=== PATIENT | male | born 1940 | race Caucasian/White ===

== ENCOUNTER 2020-03-26 08:59 | Inpatient (IN) ==
[2020-03-26] MEDS ORDERED: ACETAMINOPHEN 325 MG TABLET PO PRN (11:19)
[2020-03-26] MEDS ORDERED: MAGNESIUM HYDROXIDE SUSP 30 ML UDCUP PO PRN (11:19)
[2020-03-26] MEDS ORDERED: MORPHINE 4 MG/1 ML VIAL IV PRN ×2 (11:19)
[2020-03-26] MEDS ORDERED: ONDANSETRON 4 MG/2 ML VIAL IV PRN (11:19)
[2020-03-26] MEDS ORDERED: ZALEPLON 5 MG CAPSULE PO PRN (11:19)
[2020-03-26] MEDS ORDERED: VANCOMYCIN INJ 1,000 MG in SODIUM CHLORIDE 0.9% 250 ML IV SCH (11:30)
[2020-03-26 12:09] LABS: Basophils % 0.3 % (0.0-0.8); Eosinophils # 0.1 10*3/uL (0.0-0.87); Eosinophils % 0.9 % (0.00-10.9); Hematocrit 36.2 VOL% (42.0-52.0); Hemoglobin 11.8 GM/DL (14.0-18.0); Immature Granulocytes % 0.7 %; Immature Granulocytes Absolute 0.08 #; Lymphocytes # 1.2 10*3/uL (1.4-4.0); Lymphocytes % 10.3 % (21.2-54.2); Mean Corpuscular HGB Conc 32.6 GM/DL (32-36); Mean Corpuscular Volume 94.8 FL (87-102); Mean Platelet Volume 11.8 FL (9.6-12.0); Monocytes % 8.7 % (1.7-12.7); Neutrophils % 79.1 % (38.7-73.9); Platelet Count 237 T/CUMM (130-400); Red Blood Count 3.82 MC/CUMM (3.8-5.5); Red Cell Distribution Width 13.2 % (9.3-17.3); White Blood Count 11.5 T/CUMM (4-12)
[2020-03-26 12:35] LABS: Albumin 3.2 G/DL (3.4-5.0); Bilirubin,Total 1.3 MG/DL (0.2-1.0); Calcium 9.4 MG/DL (8.5-10.1); Osmolality,Calculated 276.1 MOS/KG (273-304); Total Protein 8.6 G/DL (6.4-8.3)
[2020-03-26 12:56] LABS: INR 1.1; PT Patient Result 11.4 SECS (9.8-11.9); Partial Thromboplastin Time 32.5 SECS (23.9-33.8)
[2020-03-26] MEDS: LACTATED RINGERS 1,000 ML IV SCH ×2 (13:40→23:56)
[2020-03-26] MEDS: VANCOMYCIN INJ 1,500 MG in SODIUM CHLORIDE 0.9% 500 ML IV SCH (13:41)
[2020-03-26 15:44] LABS: Apearance,Urine CLEAR (Clear); Bilirubin,Urine Negative (Negative); Blood, Urine Negative (Negative); Glucose,Urine (UA) Negative (Negative); Hyaline Casts,Urine 1 /LPF (0-3); Ketones,Urine Negative (Negative); Mucus,Urine Occasional /LPF (Occasional); Nitrite,Urine Negative (Negative); Protein,Urine Negative; RBC,Urine <1 /HPF (0-4); Squamous Epithelial Cell,Urine Occasional /HPF (0-10); Urine Color Straw (Yellow); Urine Specific Gravity 1.011 (1.001-1.035); Urine Urobilinogen < 2.0 EU/DL (0.2-1.0)
[2020-03-26] MEDS: SIMVASTATIN 10 MG TABLET PO SCH (21:06)
[2020-03-26] MEDS: DOCUSATE SODIUM 100 MG CAPSULE PO SCH (21:06)
[2020-03-27 06:57] LABS: Basophils # 0.1 10*3/uL (0.0-0.2); Basophils % 0.6 % (0.0-0.8); Eosinophils # 0.2 10*3/uL (0.0-0.87); Eosinophils % 2.7 % (0.00-10.9); Hemoglobin 10.7 GM/DL (14.0-18.0); Immature Granulocytes % 0.6 %; Immature Granulocytes Absolute 0.05 #; Lymphocytes # 1.2 10*3/uL (1.4-4.0); Lymphocytes % 15.3 % (21.2-54.2); Mean Corpuscular HGB Conc 33.4 GM/DL (32-36); Mean Corpuscular Volume 93.8 FL (87-102); Mean Platelet Volume 12.4 FL (9.6-12.0); Monocytes % 10.7 % (1.7-12.7); Neutrophils % 70.1 % (38.7-73.9); Platelet Count 197 T/CUMM (130-400); Red Blood Count 3.41 MC/CUMM (3.8-5.5); Red Cell Distribution Width 13.3 % (9.3-17.3); White Blood Count 8.1 T/CUMM (4-12)
[2020-03-27 07:19] LABS: Calcium 9.3 MG/DL (8.5-10.1); Osmolality,Calculated 278.7 MOS/KG (273-304)
[2020-03-27] MEDS: SODIUM CHLORIDE 0.9% 1,000 ML IV SCH ×2 (07:59→13:43)
[2020-03-27] MEDS ORDERED: SODIUM POLYSTYRENE SULFATE 15 GM/60 ML BOTTLE PO STA ×2 (08:06→09:26)
[2020-03-27] MEDS ORDERED: DEXTROSE 5% NACL 0.45% 1,000 ML IV SCH (09:30)
[2020-03-27] MEDS: LACTATED RINGERS 1,000 ML IV SCH (09:31)
[2020-03-27] MEDS: DOCUSATE SODIUM 100 MG CAPSULE PO SCH ×2 (09:32→20:43)
[2020-03-27] MEDS: OLMESARTAN 20 MG TABLET PO SCH (09:32)
[2020-03-27] MEDS ORDERED: DEXTROSE IV SCH (11:30)
[2020-03-27] MEDS ORDERED: [UNRECOGNIZED DRUG - OTHER] IV SCH (11:30)
[2020-03-27] MEDS ORDERED: SODIUM BICARB IV SCH (11:30)
[2020-03-27] MEDS ORDERED: CALCIUM GLUCONATE 1,000 MG in SODIUM CHLORIDE 0.9% 100 ML IV ONE (11:30)
[2020-03-27] MEDS ORDERED: INSULIN REGULAR IV SCH (11:30)
[2020-03-27] MEDS ORDERED: ePHEDrine 50 MG/ML VIAL ONE (13:07)
[2020-03-27] MEDS ORDERED: propofoL 200 MG/20 ML VIAL IV ONE (13:10)
[2020-03-27] MEDS ORDERED: fentaNYL 100 MCG/2 ML VIAL ONE (13:11)
[2020-03-27] MEDS ORDERED: LIDOCAINE 2% 5 ML VIAL ONE (13:11)
[2020-03-27] MEDS ORDERED: GLYCOPYRROLATE 0.4 MG/2 ML VIAL ONE (13:11)
[2020-03-27] MEDS ORDERED: ROCURONIUM 100 MG/10 ML VIAL IV ONE (13:11)
[2020-03-27] MEDS ORDERED: NEOSTIGMINE 10 MG/10 ML VIAL ONE (13:11)
[2020-03-27] MEDS ORDERED: SEVOFLURANE 1 UNIT/15 MINUTE INH ONE (13:11)
[2020-03-27] MEDS ORDERED: ONDANSETRON 4 MG/2 ML VIAL IV PRN (13:31)
[2020-03-27] MEDS ORDERED: HYDROmorphone 2 MG/1 ML VIAL IV PRN (13:31)
[2020-03-27] MEDS: VANCOMYCIN INJ 1,500 MG in SODIUM CHLORIDE 0.9% 500 ML IV SCH (15:40)
[2020-03-27] MEDS ORDERED: BISMUTH SUBSALICYLATE 30 ML/524 MG 240 ML/BOTTLE PO ONE (19:32)
[2020-03-27] MEDS: SIMVASTATIN 10 MG TABLET PO SCH (20:43)
[2020-03-27] MEDS: APIXABAN 2.5 MG TABLET PO SCH (20:43)
[2020-03-28 05:34] LABS: Basophils # 0.1 10*3/uL (0.0-0.2); Basophils % 0.8 % (0.0-0.8); Eosinophils # 0.2 10*3/uL (0.0-0.87); Eosinophils % 2.4 % (0.00-10.9); Hematocrit 33.1 VOL% (42.0-52.0); Hemoglobin 10.9 GM/DL (14.0-18.0); Immature Granulocytes % 0.5 %; Immature Granulocytes Absolute 0.04 #; Lymphocytes # 1.1 10*3/uL (1.4-4.0); Lymphocytes % 13.8 % (21.2-54.2); Mean Corpuscular HGB Conc 32.9 GM/DL (32-36); Mean Corpuscular Volume 94.3 FL (87-102); Mean Platelet Volume 11.8 FL (9.6-12.0); Monocytes % 10.6 % (1.7-12.7); Neutrophils % 71.9 % (38.7-73.9); Platelet Count 209 T/CUMM (130-400); Red Blood Count 3.51 MC/CUMM (3.8-5.5)
[2020-03-28 05:55] LABS: Osmolality,Calculated 274.7 MOS/KG (273-304)
[2020-03-28] MEDS: APIXABAN 2.5 MG TABLET PO SCH ×2 (09:07→20:43)
[2020-03-28] MEDS: DOCUSATE SODIUM 100 MG CAPSULE PO SCH ×2 (09:08→20:43)
[2020-03-28] MEDS: PANTOPRAZOLE 40 MG TABLET PO SCH (09:08)
[2020-03-28] MEDS: OLMESARTAN 20 MG TABLET PO SCH (09:08)
[2020-03-28] MEDS: VANCOMYCIN INJ 1,500 MG in SODIUM CHLORIDE 0.9% 500 ML IV SCH (13:57)
[2020-03-28] MEDS: SIMVASTATIN 10 MG TABLET PO SCH (20:43)
[2020-03-29] MEDS: APIXABAN 2.5 MG TABLET PO SCH ×2 (09:22→21:12)
[2020-03-29] MEDS: DOCUSATE SODIUM 100 MG CAPSULE PO SCH ×2 (09:22→21:11)
[2020-03-29] MEDS: PANTOPRAZOLE 40 MG TABLET PO SCH (09:22)
[2020-03-29] MEDS: OLMESARTAN 20 MG TABLET PO SCH (09:22)
[2020-03-29] MEDS: VANCOMYCIN INJ 1,500 MG in SODIUM CHLORIDE 0.9% 500 ML IV SCH (13:37)
[2020-03-29] MEDS: SIMVASTATIN 10 MG TABLET PO SCH (21:12)
[2020-03-30] MEDS: OLMESARTAN 20 MG TABLET PO SCH ×2 (06:21→08:18)
[2020-03-30] MEDS: PANTOPRAZOLE 40 MG TABLET PO SCH (08:48)
[2020-03-30] MEDS: APIXABAN 2.5 MG TABLET PO SCH (08:48)
[2020-03-30] MEDS: DOCUSATE SODIUM 100 MG CAPSULE PO SCH (08:48)
[2020-03-30 11:11] VITALS: BP 131/62
[2020-03-30] MEDS: VANCOMYCIN INJ 1,500 MG in SODIUM CHLORIDE 0.9% 500 ML IV SCH (12:11)
== END 2020-03-30 13:05 | disposition home or self-care (01) | DRG 501 ==
LOC: SUATTDRO 11:07 → N.3E 11:07
PROVIDERS: ADMIT Orthopaedic Surgery; ATTEND Orthopaedic Surgery